=== PATIENT | male | born 1960 | race Hispanic/Latino ===

== ENCOUNTER → 2017-10-11 | Outpatient (CLI) | payer BC ==
--- NOTE | 2017-10-11 12:07 | Diagnostic Imaging Report ---
PROCEDURE: Frontal and lateral views of the chest. COMPARISON: None. INDICATIONS: COUGH FINDINGS: Lines/tubes: None. Lungs: The lungs are well inflated. 3-4 mm nodular density projecting over the posterior aspect of the right seventh rib on the frontal view. No consolidation or pulmonary edema. Pleura: There is no pleural effusion or pneumothorax. Heart and mediastinum: Cardiac silhouette is unremarkable. Pulmonary vasculature is normal. Bones: No aggressive lytic lesion. Degenerative changes in the thoracic spine. IMPRESSION: 1. No acute cardiopulmonary abnormalities. 2. 34 mm nodular density in the right midlung may represent a calcified granuloma, pulmonary nodule or summation of vessels shadows. Prior films, if available, would be helpful for comparison. If no prior films can be obtained, recommend chest PA and lateral in 3-6 months to document stability. Alternatively, a chest CT may be obtained for further evaluation. Wilmer Bates M.D. Dictated by: Wilmer Bates M.D. on 10/11/2017 at 12:07 Electronically approved by: Wilmer Bates M.D. on 10/11/2017 at 12:07
== END ==
LOC: RAD 11:20
PROVIDERS: ATTEND Internal Medicine Hematology & Oncology
DX: R05 Cough (principal); R91.1 Solitary pulmonary nodule
CPT/HCPCS: 71046